=== PATIENT | female | born 1950 | race Caucasian/White ===

== ENCOUNTER 2016-05-20 22:33 | Emergency (ER) | payer OTHER ==
[~2016-05-20] VITALS: Ht 167.6 cm; Wt 59.2 kg
[~2016-05-20 22:33] MED LIST: SLEEPING PILL
[2016-05-20 23:08] VITALS: BP 104/67; PULSE 67; RESP 18; TEMP 98.5; O2SAT 97
== END 2016-05-21 00:15 | disposition left against medical advice (07) ==
LOC: PHED 22:33
DX: M25.562 Pain in left knee (principal)
CPT/HCPCS: 99281

== ENCOUNTER 2016-09-27 23:25 | Inpatient (IN) | payer OTHER ==
[~2016-09-27] VITALS: Ht 167.6 cm; Wt 59.2 kg
[2016-09-28] VITALS (11 sets, daily range): BP systolic 109–155; BP diastolic 56–89; PULSE 55–114; RESP 12–17; TEMP 96.6–98.4; O2SAT 95–100
[2016-09-28] MEDS ORDERED: SODIUM CHLOR 0.9% 1000 ML INJ 1,000 ML IV SCH (02:16)
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
[2016-09-28] MEDS ORDERED: HYDROmorphone HCL PF 1 MG/ML VIAL IV PUSH ONE ×2 (02:30→04:15)
[2016-09-28] MEDS ORDERED: ONDANSETRON HCL 4 MG/2 ML VIAL IVP ONE (02:30)
[2016-09-28] MEDS ORDERED: SODIUM CHLORIDE 0.9% FLUSH 10 ML FLUSH IV FLUSH PRN ×2 (02:30→06:15)
[2016-09-28 02:49] LABS: AUTOMATED NEUTROPHIL # 12.6 TH/MM3 (1.8-7.7); BASOPHIL # 0.7 TH/MM3 (0-0.2); BASOPHIL % 4.4 % (0.0-2.0); EOSINOPHIL # 0.1 TH/MM3 (0-0.4); EOSINOPHIL % 0.4 % (0.0-4.0); HEMATOCRIT 40.3 % (35.0-46.0); LYMPH % 9.8 % (9.0-44.0); LYMPHOCYTE # 1.5 TH/MM3 (1.0-4.8); MEAN CELL VOLUME 92.1 FL (80.0-100.0); MEAN CORPUSCULAR HEMOGLOBIN 30.8 PG (27.0-34.0); MEAN CORPUSCULAR HGB CONC 33.4 % (32.0-36.0); MONO % 4.4 % (0.0-8.0); PLATELET COUNT 318 TH/MM3 (150-450); RED BLOOD COUNT 4.38 MIL/MM3 (4.00-5.30); RED CELL DISTRIBUTION WIDTH 13.2 % (11.6-17.2); WHITE BLOOD COUNT 15.6 TH/MM3 (4.0-11.0)
[2016-09-28 02:53] LABS: HEMO FLAGS AUTO DIFF
[2016-09-28 03:00] LABS: CHLORIDE 107 MEQ/L (98-107); SODIUM (NA) 141 MEQ/L (136-145)
[2016-09-28 03:04] LABS: ANION GAP 8 MEQ/L (5-15); BICARBONATE 26.3 MEQ/L (21.0-32.0)
[2016-09-28 03:05] LABS: BLOOD UREA NITROGEN 23 MG/DL (7-18)
[2016-09-28 03:07] LABS: ALT (GPT) 28 U/L (10-53); AST (GOT) 22 U/L (15-37)
[2016-09-28 03:08] LABS: GLOMERULAR FILTRATION RATE 72 ML/MIN (>89)
[2016-09-28 03:09] LABS: TOTAL BILIRUBIN ADULT 0.5 MG/DL (0.2-1.0)
[2016-09-28 03:10] LABS: ALKALINE PHOSPHATASE 77 U/L (45-117)
[2016-09-28 03:11] LABS: POTASSIUM 4.1 MEQ/L (3.5-5.1)
[2016-09-28 03:14] LABS: PLATELET ESTIMATE SMEAR NORMAL (NORMAL); PLATELET MORPHOLOGY NORMAL (NORMAL); SCAN/DIFF AUTO DIFF CONFIRMED
[2016-09-28] MEDS ORDERED: DIATRIZOATE MEGLUM/DIATRIZOATE SOD 9 ML CUP ONE (04:00)
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
[2016-09-28] MEDS ORDERED: SODIUM CHLORIDE 0.9% FLUSH 10 ML FLUSH IVF PRN (06:00)
[2016-09-28] MEDS ORDERED: PANTOPRAZOLE SODIUM 40 MG VIAL IV PUSH ONE (06:00)
[2016-09-28] MEDS ORDERED: KETOROLAC TROMETHAMINE 30 MG/ML (IVP) VIAL IV PUSH ONE (06:00)
[2016-09-28] MEDS ORDERED: HYDROmorphone HCL PF 1 MG/ML VIAL IV PRN (06:15)
[2016-09-28] MEDS ORDERED: NALOXONE HCL 0.4 MG/ML AMP IV PRN (06:15)
[2016-09-28] MEDS ORDERED: SENNOSIDES 8.6 MG TAB PO PRN (06:15)
[2016-09-28] MEDS ORDERED: MAGNESIUM HYDROXIDE SUSP 30 ML CUP PO PRN (06:15)
[2016-09-28] MEDS ORDERED: ACETAMINOPHEN 325 MG TAB PO PRN ×2 (06:15)
[2016-09-28] MEDS ORDERED: BISACODYL 10 MG SUPP RECTAL PRN (06:15)
[2016-09-28] MEDS: HEPARIN SODIUM - SQ 10,000 UNITS/ML VIAL SQ SCH ×2 (07:00→18:32)
[2016-09-28] MEDS: SODIUM CHLOR 0.9% 1000 ML INJ 1,000 ML IV SCH ×2 (07:00→18:32)
--- NOTE | 2016-09-28 07:46 | EKG ---
Date Performed: 09/28/2016 Time Performed: 02:42:00 PTAGE: 66 years EKG: Sinus rhythm POSSIBLE LEFT ATRIAL ENLARGEMENT BORDERLINE ECG PREVIOUS TRACING : 06/06/2014 09.43 No significant change from previous tracing noted. DOCTOR: Romulo Montano Interpretating Date/Time 09/28/2016 07:44:55
[2016-09-28] MEDS: ONDANSETRON HCL 4 MG/2 ML VIAL IVP PRN ×3 (08:16→21:27)
[2016-09-28] MEDS: HYDROmorphone HCL PF 1 MG/ML VIAL IV PRN ×5 (08:17→21:27)
[2016-09-28] MEDS ORDERED: SODIUM CHLORIDE 0.9% FLUSH 10 ML FLUSH IV FLUSH SCH (09:00)
[2016-09-28] MEDS: SODIUM CHLORIDE 0.9% FLUSH 10 ML FLUSH IV FLUSH SCH ×2 (11:59→21:30)
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
[2016-09-28] MEDS ORDERED: IOHEXOL 350 MG/ML 10 ML VIAL (for RAD DIAG) IVCONTRAST ONE (23:26)
[2016-09-29] VITALS: BP 105/61; PULSE 69; RESP 16; TEMP 98.3; O2SAT 95
[2016-09-29] MEDS: SODIUM CHLOR 0.9% 1000 ML INJ 1,000 ML IV SCH ×3 (02:20→19:24)
[2016-09-29] MEDS: HEPARIN SODIUM - SQ 10,000 UNITS/ML VIAL SQ SCH ×2 (05:19→17:09)
[2016-09-29] MEDS: HYDROmorphone HCL PF 1 MG/ML VIAL IV PRN ×5 (05:20→20:58)
[2016-09-29 06:28] LABS: AUTOMATED NEUTROPHIL # 3.9 TH/MM3 (1.8-7.7); BASOPHIL % 0.3 % (0.0-2.0); EOSINOPHIL # 0.1 TH/MM3 (0-0.4); EOSINOPHIL % 0.8 % (0.0-4.0); HEMATOCRIT 35.5 % (35.0-46.0); HEMO FLAGS DIFF FINAL; LYMPH % 29.4 % (9.0-44.0); MEAN CORPUSCULAR HEMOGLOBIN 30.2 PG (27.0-34.0); MEAN CORPUSCULAR HGB CONC 32.8 % (32.0-36.0); MONO % 9.8 % (0.0-8.0); NEUT % 59.7 % (16.0-70.0); PLATELET COUNT 268 TH/MM3 (150-450); RED BLOOD COUNT 3.86 MIL/MM3 (4.00-5.30); RED CELL DISTRIBUTION WIDTH 12.9 % (11.6-17.2); WHITE BLOOD COUNT 6.7 TH/MM3 (4.0-11.0)
[2016-09-29 06:29] LABS: BLOOD, URINE MOD (NEG); GLUCOSE,URINE NEG (NEG); KETONE, URINE NEG (NEG); NITRITE,URINE POS (NEG)
[2016-09-29 06:39] LABS: POTASSIUM 3.3 MEQ/L (3.5-5.1)
[2016-09-29 06:39] LABS: METHOD OF COLLECTION CLEAN CATCH; URINE COLOR STRAW (YELLW/STRAW)
[2016-09-29 06:41] LABS: BACTERIA, URINE MANY /hpf; COMMENT (UR) CULTURE INDICATED; CULTURE IF INDICATED CULTURE INDICATED; RBC, URINE 0-3 /hpf (0-3)
[2016-09-29 07:06] LABS: BICARBONATE 26.6 MEQ/L (21.0-32.0)
[2016-09-29 07:40] VITALS: O2SAT 94
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
[2016-09-29 08:00] VITALS: BP 104/66; PULSE 65; RESP 16; TEMP 97.3; O2SAT 94
[2016-09-29] MEDS ORDERED: MAGNESIUM CITRATE SOLN 300 ML BTL PO ONE ×3 (08:00→20:00)
[2016-09-29] MEDS: SODIUM CHLORIDE 0.9% FLUSH 10 ML FLUSH IV FLUSH SCH ×2 (08:06→20:57)
[2016-09-29] MEDS: ONDANSETRON HCL 4 MG/2 ML VIAL IVP PRN (08:51)
--- NOTE | 2016-09-29 11:59 | HHI.PR ---
Subjective History of Present Illness Patient still have epigastric pain d/w RN Magi no other issue on clear liquid diet. Review of Systems Constitutional Constitutional: Fatigue, Weakness GI/Abdomen GI/Abdominal Exam: Nausea, Abdominal Pain Vitals/Results Vital Signs Vital Signs Date Time Temp Pulse Resp B/P (MAP) Pulse Ox O2 Delivery O2 Flow Rate FiO2 09/29/16 08:00 97.3 65 16 104/66 (79) 94 09/29/16 07:40 94 21 09/29/16 00:00 98.3 69 16 105/61 (76) 95 09/28/16 20:00 98.1 114 16 155/86 (109) 97 09/28/16 19:19 97 21 09/28/16 19:00 18 09/28/16 16:00 97.2 55 16 118/79 (92) 95 09/28/16 12:00 96.9 62 16 109/67 (81) 98 CBC/BMP: 09/29/16 0550 09/29/16 0550 Lab Results Laboratory Tests Test 09/29/16 05:15 09/29/16 05:50 Urine Collection Type CLEAN CATCH Urine Color STRAW Urine Turbidity SLIGHTY CLOUDY Urine pH 6.0 Urine Specific [place] 1.013 Urine Protein NEG mg/dL Urine Glucose (UA) NEG mg/dL Urine Ketones NEG mg/dL Urine Occult Blood MOD Urine Nitrite POS Urine Bilirubin NEG Urine Leukocyte Esterase TRACE Urine RBC 0-3 /hpf Urine WBC 9-14 /hpf Urine Bacteria MANY /hpf Microscopic Urinalysis Comment CULTURE INDICATED White Blood Count 6.7 TH/MM3 Red Blood Count 3.86 MIL/MM3 Hemoglobin 11.6 GM/DL Hematocrit 35.5 % Mean Corpuscular Volume 92.0 FL Mean Corpuscular Hemoglobin 30.2 PG Mean Corpuscular Hemoglobin Concent 32.8 % Red Cell Distribution Width 12.9 % Platelet Count 268 TH/MM3 Mean Platelet Volume 7.8 FL Neutrophils (%) (Auto) 59.7 % Lymphocytes (%) (Auto) 29.4 % Monocytes (%) (Auto) 9.8 % Eosinophils (%) (Auto) 0.8 % Basophils (%) (Auto) 0.3 % Neutrophils # (Auto) 3.9 TH/MM3 Lymphocytes # (Auto) 2.0 TH/MM3 Monocytes # (Auto) 0.7 TH/MM3 Eosinophils # (Auto) 0.1 TH/MM3 Basophils # (Auto) 0.0 TH/MM3 CBC Comment DIFF FINAL Differential Comment Blood Urea Nitrogen 17 MG/DL Creatinine 0.69 MG/DL Random Glucose 96 MG/DL Calcium Level 8.4 MG/DL Sodium Level 141 MEQ/L Potassium Level 3.3 MEQ/L Chloride Level 107 MEQ/L Carbon Dioxide Level 26.6 MEQ/L Anion Gap 7 MEQ/L Estimat Glomerular Filtration Rate 86 ML/MIN Microbiology Microbiology 09/29/16 Urine Culture, Received Pending Physical Exam General General Appearance: Well Developed, Well Nourished, No Acute Distress, Comfortable Eyes Eye Exam: Sclera White, Extraocular Movement Intact Throat Throat Exam: Oral Mucosa [place] & Moist, Oral Pharynx Normal Neck Neck Exam: Neck Supple, Trachea Midline Pulmonary Resp Exam: Clear Bilaterally, Breath Sounds Equal, No Distress Cardiology CV Exam: Regular, Normal Sinus Rhythm Gastrointestinal/Abdomen GI Exam: Soft GI Remarks Epigastric tenderness. Musculoskeletal MS Exam: Joints Intact Integumentary Skin Exam: Clear, Warm, Dry, Intact Extremeties Extremities Exam: No Edema Neurologic Neuro Exam: Alert, Awake, Oriented, Moving All Extremities, No Focal Deficits Psychiatric Psych Exam: Appropriate Responses VTE Prophylaxis VTE Prophylaxis Meds: Heparin PUD Prophylasis PUD Prophylaxis: Protonix Assessment/Plan Assessment/Plan ASSESSMENT/PLAN This is 66-year-old female who came to the ER diagnosed with 1. abdominal pain. secondary to partial small bowel obstruction on clear liquid diet still have pain patient is on pain medication. GI input noted, consulted general surgery further recommendations per consultants. 2. Deep venous thrombosis prophylaxis, heparin 5000 units subcutaneous twice a day. 3. GI prophylaxis. Protonix 40 milligrams p.o. daily. 4. Hypokalemia ...will replace and monitor. We are going to manage the patient on a daily basis and make recommendations on a daily basis. Discussed Condition with: Patient Agapito Cates MD Sep 29, 2016 11:59
[2016-09-29 12:00] VITALS: BP 120/83; PULSE 67; RESP 18; TEMP 97.5; O2SAT 98
[2016-09-29] MEDS ORDERED: POTASSIUM CHLORIDE 20 MEQ CONTROLLED RELEASE TAB PO ONE (12:15)
[2016-09-29] MEDS: cefTRIAXone INJ 1,000 MG in SODIUM CHLORIDE 0.9% INJ 100 ML IV SCH (13:08)
[2016-09-29 15:57] VITALS: BP 120/58; PULSE 73; RESP 16; TEMP 98.1; O2SAT 97
[2016-09-29] MEDS: BISACODYL EC 5 MG TABEC PO SCH ×2 (18:07→20:57)
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
[2016-09-29 20:00] VITALS: BP 127/72; PULSE 67; RESP 16; TEMP 97.7; O2SAT 96
[2016-09-30] VITALS: BP 109/63; PULSE 60; RESP 16; TEMP 97.6; O2SAT 97
[2016-09-30] MEDS: SODIUM CHLOR 0.9% 1000 ML INJ 1,000 ML IV SCH ×2 (05:29→17:48)
[2016-09-30] MEDS: HEPARIN SODIUM - SQ 10,000 UNITS/ML VIAL SQ SCH ×2 (05:29→18:11)
[2016-09-30] MEDS: HYDROmorphone HCL PF 1 MG/ML VIAL IV PRN (05:30)
[2016-09-30 06:50] LABS: CHLORIDE 107 MEQ/L (98-107); POTASSIUM 3.6 MEQ/L (3.5-5.1); SODIUM (NA) 142 MEQ/L (136-145)
[2016-09-30 06:51] LABS: AUTOMATED NEUTROPHIL # 5.3 TH/MM3 (1.8-7.7); BASOPHIL % 0.2 % (0.0-2.0); EOSINOPHIL # 0.1 TH/MM3 (0-0.4); HEMATOCRIT 34.3 % (35.0-46.0); HEMO FLAGS DIFF FINAL; LYMPHOCYTE # 2.5 TH/MM3 (1.0-4.8); MEAN CELL VOLUME 91.7 FL (80.0-100.0); MEAN CORPUSCULAR HEMOGLOBIN 30.4 PG (27.0-34.0); MEAN CORPUSCULAR HGB CONC 33.1 % (32.0-36.0); MONO % 7.9 % (0.0-8.0); NEUT % 61.9 % (16.0-70.0); PLATELET COUNT 257 TH/MM3 (150-450); RED BLOOD COUNT 3.74 MIL/MM3 (4.00-5.30); RED CELL DISTRIBUTION WIDTH 12.7 % (11.6-17.2); WHITE BLOOD COUNT 8.6 TH/MM3 (4.0-11.0)
[2016-09-30 07:15] LABS: ALKALINE PHOSPHATASE 60 U/L (45-117); ALT (GPT) 24 U/L (10-53); ANION GAP 6 MEQ/L (5-15); AST (GOT) 15 U/L (15-37); BICARBONATE 28.8 MEQ/L (21.0-32.0); BLOOD UREA NITROGEN 13 MG/DL (7-18); GLOMERULAR FILTRATION RATE 89 ML/MIN (>89); TOTAL BILIRUBIN ADULT 0.7 MG/DL (0.2-1.0)
[2016-09-30 08:00] VITALS: BP 129/83; PULSE 70; RESP 18; TEMP 98.7; O2SAT 95
--- NOTE | 2016-09-30 08:34 | HHI.PR ---
Subjective History of Present Illness Patient epigastric pain much better [facility] surgery input noted getting small bowel follow through..d/w RN no other issue on clear liquid diet. have bowel movement. Review of Systems Constitutional Constitutional: Fatigue, Weakness GI/Abdomen GI/Abdominal Exam: Nausea, Abdominal Pain Vitals/Results Vital Signs Vital Signs Date Time Temp Pulse Resp B/P (MAP) Pulse Ox O2 Delivery O2 Flow Rate FiO2 09/30/16 08:00 98.7 70 18 129/83 (98) 95 09/30/16 00:00 97.6 60 16 109/63 (78) 97 09/29/16 20:00 97.7 67 16 127/72 (90) 96 09/29/16 15:57 98.1 73 16 120/58 (78) 97 09/29/16 12:00 97.5 67 18 120/83 (95) 98 CBC/BMP: 09/30/16 0535 09/30/16 0535 Lab Results Laboratory Tests Test 09/30/16 05:35 White Blood Count 8.6 TH/MM3 Red Blood Count 3.74 MIL/MM3 Hemoglobin 11.4 GM/DL Hematocrit 34.3 % Mean Corpuscular Volume 91.7 FL Mean Corpuscular Hemoglobin 30.4 PG Mean Corpuscular Hemoglobin Concent 33.1 % Red Cell Distribution Width 12.7 % Platelet Count 257 TH/MM3 Mean Platelet Volume 8.6 FL Neutrophils (%) (Auto) 61.9 % Lymphocytes (%) (Auto) 29.0 % Monocytes (%) (Auto) 7.9 % Eosinophils (%) (Auto) 1.0 % Basophils (%) (Auto) 0.2 % Neutrophils # (Auto) 5.3 TH/MM3 Lymphocytes # (Auto) 2.5 TH/MM3 Monocytes # (Auto) 0.7 TH/MM3 Eosinophils # (Auto) 0.1 TH/MM3 Basophils # (Auto) 0.0 TH/MM3 CBC Comment DIFF FINAL Differential Comment Blood Urea Nitrogen 13 MG/DL Creatinine 0.67 MG/DL Random Glucose 74 MG/DL Total Protein 6.3 GM/DL Albumin 2.9 GM/DL Calcium Level 7.8 MG/DL Alkaline Phosphatase 60 U/L Aspartate Amino Transf (AST/SGOT) 15 U/L Alanine Aminotransferase (ALT/SGPT) 24 U/L Total Bilirubin 0.7 MG/DL Sodium Level 142 MEQ/L Potassium Level 3.6 MEQ/L Chloride Level 107 MEQ/L Carbon Dioxide Level 28.8 MEQ/L Anion Gap 6 MEQ/L Estimat Glomerular Filtration Rate 89 ML/MIN Physical Exam General General Appearance: Well Developed, Well Nourished, No Acute Distress, Comfortable Eyes Eye Exam: Sclera White, Extraocular Movement Intact Throat Throat Exam: Oral Mucosa [place] & Moist, Oral Pharynx Normal Neck Neck Exam: Neck Supple, Trachea Midline Pulmonary Resp Exam: Clear Bilaterally, Breath Sounds Equal, No Distress Cardiology CV Exam: Regular, Normal Sinus Rhythm Gastrointestinal/Abdomen GI Exam: Soft, Bowel Sounds Present, Positive Bowel Movement GI Remarks Epigastric tenderness... better. Musculoskeletal MS Exam: Joints Intact Integumentary Skin Exam: Clear, Warm, Dry, Intact Extremeties Extremities Exam: No Edema Neurologic Neuro Exam: Alert, Awake, Oriented, Moving All Extremities, No Focal Deficits Psychiatric Psych Exam: Appropriate Responses VTE Prophylaxis VTE Prophylaxis Meds: Heparin PUD Prophylasis PUD Prophylaxis: Protonix Assessment/Plan Assessment/Plan ASSESSMENT/PLAN This is 66-year-old female who came to the ER diagnosed with 1. abdominal pain. secondary to partial small bowel obstruction on clear liquid diet patient is on pain medication...Abdominal pain better. GI input noted, general surgery input noted getting small bowel follow through further recommendations per consultants. 2. Deep venous thrombosis prophylaxis, heparin 5000 units subcutaneous twice a day. 3. GI prophylaxis. Protonix 40 milligrams p.o. daily. 4. Hypokalemia ..Resolved. 5. UTI.. On Rocephin 1 gram IV Daily. We are going to manage the patient on a daily basis and make recommendations on a daily basis. Discussed Condition with: Patient Agapito Cates MD Sep 30, 2016 08:34
[2016-09-30] MEDS: SODIUM CHLORIDE 0.9% FLUSH 10 ML FLUSH IV FLUSH SCH ×2 (08:56→21:16)
[2016-09-30 12:00] VITALS: BP 138/75; PULSE 68; RESP 18; TEMP 97.2; O2SAT 97
[2016-09-30] MEDS ORDERED: DIATRIZOATE MEGLUM/DIATRIZOATE SOD 120 ML BTL (for RAD DIAG) PO ONE (13:30)
[2016-09-30] MEDS: cefTRIAXone INJ 1,000 MG in SODIUM CHLORIDE 0.9% INJ 100 ML IV SCH (15:16)
[2016-09-30 16:00] VITALS: BP 141/70; PULSE 68; RESP 20; TEMP 96.8; O2SAT 99
--- NOTE | 2016-09-30 17:22 | HHI.GIFU ---
GI Follow-up Note Consult Follow-up Subjective: Patient laying in bed comfortably, feeling better.Denies nausea, vomiting, had multiple bowel movements, asking for food .UGI/SBFT completed, results pending.Hungry, wants to eat Objective: PHYSICAL EXAMINATION: Vitals signs stable No fever Vital Signs Date Time Temp Pulse Resp B/P (MAP) Pulse Ox O2 Delivery O2 Flow Rate FiO2 09/30/16 16:00 96.8 68 20 141/70 (93) 99 09/30/16 12:00 97.2 68 18 138/75 (96) 97 HEENT: Pupils round and reactive to light; normocephalic; atraumatic; no jaundice. Throat is clear. NECK: Neck is supple, no JVD, no lymphadenopathy. CHEST: Chest is clear to auscultation and percussion. CARDIAC: Regular rate and rhythm with no murmur gallop or rubs. ABD Laboratory Tests Test 09/29/16 05:15 09/29/16 05:50 09/30/16 05:35 Urine Collection Type CLEAN CATCH Urine Color STRAW Urine Turbidity SLIGHTY CLOUDY Urine pH 6.0 Urine Specific [place] 1.013 Urine Protein NEG mg/dL Urine Glucose (UA) NEG mg/dL Urine Ketones NEG mg/dL Urine Occult Blood MOD Urine Nitrite POS Urine Bilirubin NEG Urine Leukocyte Esterase TRACE Urine RBC 0-3 /hpf Urine WBC 9-14 /hpf Urine Bacteria MANY /hpf Microscopic Urinalysis Comment CULTURE INDICATED White Blood Count 6.7 TH/MM3 8.6 TH/MM3 Red Blood Count 3.86 MIL/MM3 3.74 MIL/MM3 Hemoglobin 11.6 GM/DL 11.4 GM/DL Hematocrit 35.5 % 34.3 % Mean Corpuscular Volume 92.0 FL 91.7 FL Mean Corpuscular Hemoglobin 30.2 PG 30.4 PG Mean Corpuscular Hemoglobin Concent 32.8 % 33.1 % Red Cell Distribution Width 12.9 % 12.7 % Platelet Count 268 TH/MM3 257 TH/MM3 Mean Platelet Volume 7.8 FL 8.6 FL Neutrophils (%) (Auto) 59.7 % 61.9 % Lymphocytes (%) (Auto) 29.4 % 29.0 % Monocytes (%) (Auto) 9.8 % 7.9 % Eosinophils (%) (Auto) 0.8 % 1.0 % Basophils (%) (Auto) 0.3 % 0.2 % Neutrophils # (Auto) 3.9 TH/MM3 5.3 TH/MM3 Lymphocytes # (Auto) 2.0 TH/MM3 2.5 TH/MM3 Monocytes # (Auto) 0.7 TH/MM3 0.7 TH/MM3 Eosinophils # (Auto) 0.1 TH/MM3 0.1 TH/MM3 Basophils # (Auto) 0.0 TH/MM3 0.0 TH/MM3 CBC Comment DIFF FINAL DIFF FINAL Differential Comment Blood Urea Nitrogen 17 MG/DL 13 MG/DL Creatinine 0.69 MG/DL 0.67 MG/DL Random Glucose 96 MG/DL 74 MG/DL Calcium Level 8.4 MG/DL 7.8 MG/DL Sodium Level 141 MEQ/L 142 MEQ/L Potassium Level 3.3 MEQ/L 3.6 MEQ/L Chloride Level 107 MEQ/L 107 MEQ/L Carbon Dioxide Level 26.6 MEQ/L 28.8 MEQ/L Anion Gap 7 MEQ/L 6 MEQ/L Estimat Glomerular Filtration Rate 86 ML/MIN 89 ML/MIN Total Protein 6.3 GM/DL Albumin 2.9 GM/DL Alkaline Phosphatase 60 U/L Aspartate Amino Transf (AST/SGOT) 15 U/L Alanine Aminotransferase (ALT/SGPT) 24 U/L Total Bilirubin 0.7 MG/DL OMEN: Soft, nondistended, nontender; no hepatosplenomegaly; bowel sounds are present in all four quadrants. EXTREMITIES: No clubbing, cyanosis, or edema. SKIN: Normal; no rash; no jaundice. STONE ENGRAVER: No focal deficits; alert and oriented times three. Available Data (labs, X- Rays, Procedues) : ASSESSMENT/PLAN: abdominal pain, nausea, vomiting-resolved secondary recurrent bowel obstruction , clinically resolved recurrent bowel obstruction most likely secondary adhesison Recommendations full liquid diet, advance more if ok with surgery await sbft results surgical fu It was a pleasure seeing Terri Xiong. Thank you for this consult. Entered by: Amirah Antonio MD Sep 30, 2016 17:22
--- NOTE | 2016-09-30 17:51 | HHI.PR ---
Subjective Subjective Notes Has had 6 BMs. UGI SBFT shows no obstruction of flow of contrast into Colon. Pt hungry, wants to eat. Pt requests note for work, placed on chart. Objective Vitals/I&O Vital Signs Date Time Temp Pulse Resp B/P (MAP) Pulse Ox O2 Delivery O2 Flow Rate FiO2 09/30/16 16:00 96.8 68 20 141/70 (93) 99 09/29/16 07:40 21 09/28/16 04:49 Room Air Labs Laboratory Tests Test 09/30/16 05:35 White Blood Count 8.6 Red Blood Count 3.74 Hemoglobin 11.4 Hematocrit 34.3 Mean Corpuscular Volume 91.7 Mean Corpuscular Hemoglobin 30.4 Mean Corpuscular Hemoglobin Concent 33.1 Red Cell Distribution Width 12.7 Platelet Count 257 Mean Platelet Volume 8.6 Neutrophils (%) (Auto) 61.9 Lymphocytes (%) (Auto) 29.0 Monocytes (%) (Auto) 7.9 Eosinophils (%) (Auto) 1.0 Basophils (%) (Auto) 0.2 Neutrophils # (Auto) 5.3 Lymphocytes # (Auto) 2.5 Monocytes # (Auto) 0.7 Eosinophils # (Auto) 0.1 Basophils # (Auto) 0.0 CBC Comment DIFF FINAL Differential Comment Blood Urea Nitrogen 13 Creatinine 0.67 Random Glucose 74 Total Protein 6.3 Albumin 2.9 Calcium Level 7.8 Alkaline Phosphatase 60 Aspartate Amino Transf (AST/SGOT) 15 Alanine Aminotransferase (ALT/SGPT) 24 Total Bilirubin 0.7 Sodium Level 142 Potassium Level 3.6 Chloride Level 107 Carbon Dioxide Level 28.8 Anion Gap 6 Estimat Glomerular Filtration Rate 89 Date/Time Source Procedure Growth Status 09/29/16 05:15 Urine Clean Catch Urine Culture - Preliminary Gram Negative Doe Resulted Abdomen: Non-distended, Non-tender, BS normal A/P Assessment and Plan resolved partial SBO or ileus related to UTI. GNR on urine culture. On abx. Full liquids ordered by Dr Cueva, if does well, cam advance diet to regular. Pt likely ready for DC tomorrow on oral abx for UTI. Followup with primary Milady Arzola. Johnny Ambriz MD Sep 30, 2016 17:51
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
[2016-09-30 20:00] VITALS: BP 105/65; PULSE 77; RESP 20; TEMP 98.1; O2SAT 96
[2016-10-01] VITALS: BP 117/61; PULSE 70; RESP 20; TEMP 96.8; O2SAT 97
[2016-10-01] MEDS: SODIUM CHLOR 0.9% 1000 ML INJ 1,000 ML IV SCH ×2 (05:19→14:07)
[2016-10-01] MEDS: HEPARIN SODIUM - SQ 10,000 UNITS/ML VIAL SQ SCH (05:25)
[2016-10-01 05:53] LABS: BASOPHIL % 0.8 % (0.0-2.0); EOSINOPHIL # 0.1 TH/MM3 (0-0.4); EOSINOPHIL % 1.4 % (0.0-4.0); HEMATOCRIT 35.1 % (35.0-46.0); HEMO FLAGS DIFF FINAL; LYMPH % 35.4 % (9.0-44.0); MEAN CELL VOLUME 91.9 FL (80.0-100.0); MEAN CORPUSCULAR HEMOGLOBIN 30.3 PG (27.0-34.0); MONO % 10.6 % (0.0-8.0); NEUT % 51.8 % (16.0-70.0); PLATELET COUNT 269 TH/MM3 (150-450); RED BLOOD COUNT 3.82 MIL/MM3 (4.00-5.30); RED CELL DISTRIBUTION WIDTH 12.7 % (11.6-17.2); WHITE BLOOD COUNT 5.7 TH/MM3 (4.0-11.0)
[2016-10-01 06:11] LABS: CHLORIDE 109 MEQ/L (98-107); POTASSIUM 3.3 MEQ/L (3.5-5.1); SODIUM (NA) 144 MEQ/L (136-145)
[2016-10-01 06:16] LABS: ANION GAP 7 MEQ/L (5-15); BICARBONATE 27.7 MEQ/L (21.0-32.0); BLOOD UREA NITROGEN 13 MG/DL (7-18)
[2016-10-01 06:18] LABS: ALT (GPT) 43 U/L (10-53)
[2016-10-01 06:19] LABS: AST (GOT) 26 U/L (15-37); GLOMERULAR FILTRATION RATE 90 ML/MIN (>89)
[2016-10-01 06:20] LABS: TOTAL BILIRUBIN ADULT 0.4 MG/DL (0.2-1.0)
[2016-10-01 06:21] LABS: ALKALINE PHOSPHATASE 58 U/L (45-117)
[2016-10-01 08:00] VITALS: BP 114/74; PULSE 70; RESP 17; TEMP 97.4; O2SAT 97
--- NOTE | 2016-10-01 08:27 | HHI.PR ---
Subjective History of Present Illness Patient epigastric pain much better [facility] surgery input noted S/P small bowel follow through..within normal limits..d/w RN no other issue on solid diet.. tolerating. have bowel movement. ok to discharge home per surgery. Review of Systems Constitutional Constitutional: Fatigue, Weakness GI/Abdomen GI/Abdominal Exam: Nausea, Abdominal Pain Vitals/Results Vital Signs Vital Signs Date Time Temp Pulse Resp B/P (MAP) Pulse Ox O2 Delivery O2 Flow Rate FiO2 10/01/16 08:00 97.4 70 17 114/74 (87) 97 10/01/16 00:00 96.8 70 20 117/61 (79) 97 09/30/16 20:00 98.1 77 20 105/65 (78) 96 09/30/16 16:00 96.8 68 20 141/70 (93) 99 09/30/16 12:00 97.2 68 18 138/75 (96) 97 CBC/BMP: 10/01/16 0507 10/01/16 0507 Lab Results Laboratory Tests Test 10/01/16 05:07 White Blood Count 5.7 TH/MM3 Red Blood Count 3.82 MIL/MM3 Hemoglobin 11.6 GM/DL Hematocrit 35.1 % Mean Corpuscular Volume 91.9 FL Mean Corpuscular Hemoglobin 30.3 PG Mean Corpuscular Hemoglobin Concent 33.0 % Red Cell Distribution Width 12.7 % Platelet Count 269 TH/MM3 Mean Platelet Volume 8.2 FL Neutrophils (%) (Auto) 51.8 % Lymphocytes (%) (Auto) 35.4 % Monocytes (%) (Auto) 10.6 % Eosinophils (%) (Auto) 1.4 % Basophils (%) (Auto) 0.8 % Neutrophils # (Auto) 3.0 TH/MM3 Lymphocytes # (Auto) 2.0 TH/MM3 Monocytes # (Auto) 0.6 TH/MM3 Eosinophils # (Auto) 0.1 TH/MM3 Basophils # (Auto) 0.0 TH/MM3 CBC Comment DIFF FINAL Differential Comment Blood Urea Nitrogen 13 MG/DL Creatinine 0.66 MG/DL Random Glucose 86 MG/DL Total Protein 6.2 GM/DL Albumin 2.8 GM/DL Calcium Level 8.1 MG/DL Alkaline Phosphatase 58 U/L Aspartate Amino Transf (AST/SGOT) 26 U/L Alanine Aminotransferase (ALT/SGPT) 43 U/L Total Bilirubin 0.4 MG/DL Sodium Level 144 MEQ/L Potassium Level 3.3 MEQ/L Chloride Level 109 MEQ/L Carbon Dioxide Level 27.7 MEQ/L Anion Gap 7 MEQ/L Estimat Glomerular Filtration Rate 90 ML/MIN Physical Exam General General Appearance: Well Developed, Well Nourished, No Acute Distress, Comfortable Eyes Eye Exam: Sclera White, Extraocular Movement Intact Throat Throat Exam: Oral Mucosa [place] & Moist, Oral Pharynx Normal Neck Neck Exam: Neck Supple, Trachea Midline Pulmonary Resp Exam: Clear Bilaterally, Breath Sounds Equal, No Distress Cardiology CV Exam: Regular, Normal Sinus Rhythm Gastrointestinal/Abdomen GI Exam: Soft, Bowel Sounds Present, Positive Bowel Movement GI Remarks Epigastric tenderness... better. Musculoskeletal MS Exam: Joints Intact Integumentary Skin Exam: Clear, Warm, Dry, Intact Extremeties Extremities Exam: No Edema Neurologic Neuro Exam: Alert, Awake, Oriented, Moving All Extremities, No Focal Deficits Psychiatric Psych Exam: Appropriate Responses VTE Prophylaxis VTE Prophylaxis Meds: Heparin PUD Prophylasis PUD Prophylaxis: Protonix Assessment/Plan Assessment/Plan ASSESSMENT/PLAN This is 66-year-old female who came to the ER diagnosed with 1. Abdominal pain. secondary to partial small bowel obstruction on solid diet patient is on pain medication...Abdominal pain better. GI input noted, general surgery input noted s/p small bowel follow through within normal limits. ok to discharge per surgery. 2. Deep venous thrombosis prophylaxis, heparin 5000 units subcutaneous twice a day. 3. GI prophylaxis. Protonix 40 milligrams p.o. daily. 4. Hypokalemia ..Resolved. 5. UTI.. On Rocephin 1 gram IV Daily. ok to discharge home today. f/u with PCP /GI/General surgery 1 week Discussed Condition with: Patient Agapito Cates MD Oct 01, 2016 08:27
[2016-10-01] MEDS: SODIUM CHLORIDE 0.9% FLUSH 10 ML FLUSH IV FLUSH SCH (08:41)
[2016-10-01] MEDS ORDERED: POTASSIUM CHLORIDE 10 MEQ CONTROLLED RELEASE TAB PO ONE (09:00)
[2016-10-01 12:00] VITALS: BP 117/79; PULSE 79; RESP 18; TEMP 97.6; O2SAT 96
[2016-10-01] MEDS ORDERED: CEFU1TAB20 PO (12:35)
[2016-10-01] MEDS: cefTRIAXone INJ 1,000 MG in SODIUM CHLORIDE 0.9% INJ 100 ML IV SCH (13:00)
--- NOTE | 2016-10-06 12:57 | MD ---
cc: AGAPITO MENDOZA MD ADMISSION DATE: 09/28/2016 DISCHARGE DATE: 10/01/2016 DISPOSITION Okay to discharge the patient home. CONDITION AT THE TIME OF DISCHARGE Satisfactory. ACTIVITY As tolerated. DIET Cardiac diet. ALLERGIES No known drug allergies. DISCHARGE MEDICATIONS Ceftin 500 mg twice a day for 7 days. ADMISSION DIAGNOSIS Abdominal pain, nausea, vomiting secondary to partial small bowel obstruction. DISCHARGE DIAGNOSES 1. Partial small bowel obstruction resolved. 2. Hypokalemia which resolved. 3. Urinary tract infection. The patient was given IV Rocephin 1 gram and discharged on Ceftin 500 mg twice a day. HOSPITAL COURSE This is a 66-year-old female admitted with abdominal pain secondary to partial small bowel obstruction. The patient was on clear liquid diet. GI has seen the patient; General Surgery treating the patient. Conservative management was followed. The patient remained stable. No acute event happened. Discharged in satisfactory condition. The patient had hypokalemia during the hospital stay which resolved. Further details in the medical record. Agapito Mendoza MD EA/CARLA /12:46 PM /12:49 PM
== END 2016-10-01 14:40 | disposition home or self-care (01) | DRG 389 ==
LOC: PHED 23:25 → PHEDA 09-28 06:11 → PH3B 09-28 06:51
PROVIDERS: ADMIT Family Medicine; ATTEND Family Medicine
DX: K56.5 Intestinal adhesions [bands] with obstruction (postinfection) (principal); N39.0 Urinary tract infection, site not specified; K76.89 Other specified diseases of liver; M54.9 Dorsalgia, unspecified; G89.29 Other chronic pain; D18.09 Hemangioma of other sites; E87.6 Hypokalemia; F41.8 Other specified anxiety disorders; B96.20 Unspecified Escherichia coli [E. coli] as the cause of diseases classified elsewhere; Z85.42 Personal history of malignant neoplasm of other parts of uterus; Z90.49 Acquired absence of other specified parts of digestive tract; Z90.710 Acquired absence of both cervix and uterus
CPT/HCPCS: 74000; 74177; 74245; 80048; 80053; 81001; 83690; 85025; 87077; 87086; 87186; 93005; 96361; 96374; 96375; 96376; C9113; J0696; J1170; J1644; J1885; J2405; J7030; Q9963; Q9967